=== PATIENT | male | born 1985 | race Caucasian/White ===

== ENCOUNTER 2021-03-22 10:27 | Emergency (ER) | payer MEDICAID ==
[2021-03-22] MEDS ORDERED: CHERRY SYRUP 10 ML UDC PO ONE (12:34)
[2021-03-22] MEDS ORDERED: DEXAMETHASONE 10 MG/ML VIAL PO STA (12:34)
--- NOTE | 2021-03-22 12:38 | ED Physician Documentation ---
PD HPI HEENT - Stated complaint Stated Complaint: EAR PX - Chief complaint Chief Complaint: Heent - History obtained from History obtained from: Patient - History of Present Illness Timing - onset: How many weeks ago (2) Timing - duration: Weeks (2) Timing - details: Gradual onset, Still present Location: Left ear Worsens: Swalllowing Associated symptoms: Congestion. No: Swollen nodes, Cough Similar symptoms before: Has not had sx before Recently seen: Not recently seen - Additional information Additional information: 35-year-old male has developed pain in his left ear and he has had some decrease in his hearing in that side. He is not able to pop his ear and this is progressed over the last 3 weeks it has become persistent. He denies a cough or postnasal drainage. Review of Systems Constitutional: denies: Fever Eyes: denies: Decreased vision Ears: reports: Loss of hearing, Ear pain Nose: denies: Rhinorrhea / runny nose, Congestion Throat: denies: Sore throat Respiratory: denies: Dyspnea, Cough GI: denies: Vomiting PD PAST MEDICAL HISTORY - Past Medical History Past Medical History: No HEENT: None Psych: None - Past Surgical History Past Surgical History: No - Present Medications Home Medications: Ambulatory Orders Medication Instructions Recorded Confirmed Amox/Clav 875/125 [Augmentin] 1 each PO Q12H #20 tablet 03/22/21 - Allergies Allergies/Adverse Reactions: Allergies Allergy/AdvReac Type Severity Reaction Status Date / Time No Known Drug Allergies Allergy Verified 10/11/14 21:01 - Social History Does the pt smoke?: No Smoking Status: Never smoker Does the pt drink ETOH?: Yes Does the pt have substance abuse?: No - Immunizations Immunizations are current?: No - POLST Patient has POLST: No PD ED PE NORMAL - Vitals Vital signs reviewed: Yes (Hypertensive) - General General: Alert and oriented X 3, No acute distress, Well developed/nourished - HEENT HEENT: Atraumatic, PERRL, EOMI, Other (The left TM is covered with cerumen the right is clear there is no erythema to the canal and no pain with push on the tragus or pulling the pinna.) - Neck Neck: Supple, no meningeal sign, No bony TTP, No adenopathy - Cardiac Cardiac: RRR, No murmur - Respiratory Respiratory: No respiratory distress, Clear bilaterally - Abdomen Abdomen: Soft, Non tender - Derm Derm: Normal color, Warm and dry, No rash - Extremities Extremities: No deformity, No edema - Neuro Neuro: Alert and oriented X 3, 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, No motor deficit, No sensory deficit, Normal speech Eye Opening: Spontaneous Motor: Obeys Commands Verbal: Oriented GCS Score: 15 - Psych Psych: Normal mood, Normal affect Results - Vitals Vitals: Vital Signs - 24 hr 03/22/21 03/22/21 10:31 12:47 Temperature 36.8 C 36.5 C Heart Rate 73 60 Respiratory 16 16 Rate Blood Pressure 142/99 H 126/76 O2 Saturation 100 97 Oxygen O2 Source Room air PD MEDICAL DECISION MAKING - ED course Complexity details: considered differential, d/w patient ED course: 35-year-old male with a cerumen impaction in the left ear has no evidence of otitis externa on physical examination. The wax is loosened with use of oil retention enema and the ear is irrigated with saline warm with removal of the cerumen impaction and evaluation of the TM at that time shows distortion of the landmarks and bulging with marked erythema consistent with otitis media. Departure - Departure Disposition: 01 Home, Self Care Clinical Impression: Otitis media Qualifiers: Otitis media type: suppurative Chronicity: acute Laterality: left Recurrence: not specified as recurrent Spontaneous tympanic membrane rupture: without spontaneous rupture Qualified Code(s): H66.002 - Acute suppurative otitis media without spontaneous rupture of ear drum, left ear Condition: Stable Instructions: ED Otitis Media Acute Adult Follow-Up: [facility] [Provider Group] Prescriptions: Amox/Clav 875/125 [Augmentin] 1 each PO Q12H #20 tablet Discharge Date/Time: 03/22/21 12:54
[2021-03-22 12:48] VITALS: BP 126/76
== END 2021-03-22 12:54 | disposition home or self-care (01) ==
LOC: ED 10:27
DX: H66.002 Acute suppurative otitis media without spontaneous rupture of ear drum, left ear (principal); H61.22 Impacted cerumen, left ear
CPT/HCPCS: 99282; 99284; A9270

== ENCOUNTER 2021-04-17 07:13 | Outpatient (CLI) | payer MEDICAID ==
--- NOTE | 2021-04-17 16:19 | CT Report ---
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 For radiation dose reduction, the following was used: automated exposure control, adjustment of mA and/or kV according to patient size. FINDINGS: Image quality: Excellent. Left: External auditory canal: Canal has a normal appearance. Middle/inner ear ear: Soft tissue density is noted surrounding the ossicles. Overall, the ossicles d emonstrate no erosion or abnormal morphology. The tympanic membrane appears normal. Inner ear: Inner ear is normally formed and appears unremarkable. Facial nerve appears normal throu ghout is course. Mastoids: Mastoid air cells demonstrate near complete occlusion with areas of sclerosis. Right: External auditory canal: Canal has a normal appearance. Middle ear: The middle ear structures, including the ossicles and tympanic membrane, appear normal. No abnormal fluid or soft tissue density. Inner ear: Inner ear is normally formed and appears unremarkable. Facial nerve appears normal throu ghout its course. Mastoids: Mastoid air cells are clear. MISCELLANEOUS: Visualized surrounding bones appear unremarkable. Visualized intracranial structures , including the cerebellopontine angle cisterns, appear normal. IMPRESSION: 1. Soft tissue density surrounding the ossicles on the left with occlusion of the mastoid air cells. Appearance is suggestive of cholesteatoma. However, other etiologies such as cellular debris or other fluid secondary to chronic mastoiditis cannot be excluded. Reviewed by: Annmarie Nolasco MD on 04/17/2021 4:18 PM PDT Approved by: Annmarie Nolasco MD on 04/17/2021 4:18 PM PDT Station ID: [id number]
== END 2021-04-17 07:14 | disposition home or self-care (01) ==
LOC: DI 07:13
PROVIDERS: ATTEND Otolaryngology Facial Plastic Surgery
DX: H71.02 Cholesteatoma of attic, left ear (principal); R93.0 Abnormal findings on diagnostic imaging of skull and head, not elsewhere classified

== ENCOUNTER 2021-06-22 09:23 | Emergency (ER) | payer MEDICAID ==
[2021-06-22 09:34] VITALS: BP 132/84
--- NOTE | 2021-06-22 09:56 | ED Physician Documentation ---
PD HPI UPPER EXT INJURY - Stated complaint Stated Complaint: L HAND INJURY - Chief complaint Chief Complaint: Ext Problem - History obtained from History obtained from: Patient - History of Present Illness Location: Left, Finger (little finger) Type of injury: Blunt / blow (he struck little finger into wall accidentally, with pain and deformity at DIP joint. Has swelling and difficulty moving it, and is not improving.) Timing - onset: How many days ago (several) Timing - duration: Days Timing - details: Abrupt onset, Still present (he hoped it would improve/jammed, but is remaining swollen and unable to flex.) Worsened by: Palpating Associated symptoms: Swelling. No: Weakness, Numbness Similar symptoms before: Has not had sx before Review of Systems Skin: denies: Abrasion (s), Laceration (s) Neurologic: denies: Focal weakness, Numbness PD PAST MEDICAL HISTORY - Past Medical History Past Medical History: Yes Cardiovascular: None Respiratory: None Neuro: None Endocrine/Autoimmune: None GI: None : None HEENT: None Psych: None Musculoskeletal: None Derm: None - Past Surgical History Past Surgical History: No - Present Medications Home Medications: Ambulatory Orders Medication Instructions Recorded Confirmed Amox/Clav 875/125 [Augmentin] 1 each PO Q12H #20 tablet 03/22/21 - Allergies Allergies/Adverse Reactions: Allergies Allergy/AdvReac Type Severity Reaction Status Date / Time No Known Drug Allergies Allergy Verified 06/22/21 09:34 - Social History Does the pt smoke?: No Smoking Status: Never smoker Does the pt drink ETOH?: Yes Does the pt have substance abuse?: No - Immunizations Immunizations are current?: No - POLST Patient has POLST: No PD ED PE NORMAL - Vitals Vital signs reviewed: Yes - General General: Alert and oriented X 3, No acute distress, Well developed/nourished - Derm Derm: Normal color, Warm and dry - Extremities Extremities: Other (left little finger with swelling and tender at DIP, with palpable dorsal dislocation. Not tender at PIP nor MCP. Good color at nailbed. ) - Neuro Neuro: No motor deficit, No sensory deficit Results - Vitals Vitals: Vital Signs - 24 hr 06/22/21 09:26 Temperature 36.6 C Heart Rate 75 Respiratory 15 Rate Blood Pressure 132/84 H O2 Saturation 99 Oxygen O2 Source Room air - Rads (name of study) left fingers Radiology: Prelim report reviewed, EMP read contemporaneously (dorsal dislocation at DIP joint without fracture. ), See rad report Procedures - Reduction Body part reduced: Left, Finger (littel finger DIP) Fracture or dislocation: Dislocation Anesthesia: Digital block Reduction aftercare: NV intact, Alignment improved, Splint applied, Patient tolerated well, Other (post reduction, he is able to flex and extend at the DIP, so no obvious tendon injury.) PD MEDICAL DECISION MAKING - ED course Complexity details: reviewed results, considered differential, d/w patient Departure - Departure Disposition: 01 Home, Self Care Clinical Impression: Dislocation, finger closed Qualifiers: Encounter type: initial encounter Qualified Code(s): S63.259A - Unspecified dislocation of unspecified finger, initial encounter Condition: Stable Record reviewed to determine appropriate education?: Yes Instructions: ED Dislocation Finger Redu Comments: There are no fracture seen on your x-ray. It was dislocated and is now back in position. The tendons seem to be working okay. In order to dislocate the finger bone, you have to tear some of the ligaments at the joint. These need time for healing, typically 2 to 3 weeks. Use the finger splint in position of comfort to protect that joint. You can also tape it to guard the degree of motion if that is more useful in activities. Tylenol or ibuprofen if needed for pains. Recheck if not healed well over the next week or 2. Discharge Date/Time: 06/22/21 10:42
[2021-06-22] MEDS ORDERED: LIDOCAINE-MPF 2% 5 ML VIAL SUBQ STA (09:57)
--- NOTE | 2021-06-22 10:23 | XRAY Report ---
PROCEDURE: Hand 3 View LT INDICATIONS: TRAUMA TECHNIQUE: 4 views of the hand(s) acquired. COMPARISON: None FINDINGS: Bones: Medial subluxation of the fifth distal phalanx at the DIP joint noted. No evidence of fracture . Soft tissues: No suspicious soft tissue calcifications. IMPRESSION: Fifth distal phalangeal DIP medial subluxation without fracture. Reviewed by: Ross De Paz MD on 06/22/2021 9:21 AM [facility] Approved by: Ross De Paz MD on 06/22/2021 9:21 AM [facility] Station ID: [id number]
== END 2021-06-22 10:42 | disposition home or self-care (01) ==
LOC: ED 09:23
DX: S63.247A Subluxation of distal interphalangeal joint of left little finger, initial encounter (principal); W22.01XA Walked into wall, initial encounter
CPT/HCPCS: 26755; 26770

== ENCOUNTER 2022-05-12 13:57 | Outpatient (CLI) | payer MEDICAID ==
--- NOTE | 2022-05-12 17:34 | XRAY Report ---
PROCEDURE: Finger(s) LT INDICATIONS: LEFT FINGER PAIN TECHNIQUE: AP hand, 3 views of the left fifth finger(s) acquired. COMPARISON: None FINDINGS: Bones: No fractures or dislocations. No suspicious bony lesions. Soft tissues: No suspicious soft tissue calcifications. IMPRESSION: No acute radiographic findings. If pain persists, consider repeat imaging in 5-7 days to evaluate for occult fracture. Reviewed by: Deandra Ji MD on 05/12/2022 5:33 PM PDT Approved by: Deandra Ji MD on 05/12/2022 5:33 PM PDT Station ID: [id number]
== END 2022-05-12 13:58 | disposition home or self-care (01) ==
LOC: DI.S 13:57
PROVIDERS: ATTEND Physician Assistant
DX: M79.645 Pain in left finger(s) (principal)

== ENCOUNTER 2022-07-16 08:00 | Outpatient (CLI) | payer MEDICAID ==
--- NOTE | 2022-07-16 17:46 | XRAY Report ---
PROCEDURE: Mandible Bilat INDICATIONS: SPRAIN OF JAW TECHNIQUE: Seven views of the mandible were acquired. COMPARISON: None. FINDINGS: Bones: No fractures or dislocations. No suspicious bony lesions. Soft tissues: Visualized sinuses appear clear. No suspicious soft tissue densities. IMPRESSION: No fracture, TMJ dislocation, or other acute finding. Reviewed by: Hayes Christopher MD on 07/16/2022 4:44 PM [facility] Approved by: Hayes Christopher MD on 07/16/2022 4:44 PM [facility] Station ID: [id number]
== END 2022-07-16 08:01 | disposition home or self-care (01) ==
LOC: DI.S 08:00
PROVIDERS: ATTEND Physician Assistant
DX: S03.41XA Sprain of jaw, right side, initial encounter (principal)